=== PATIENT | female | born 1990 | race African-American/Black ===

== ENCOUNTER 2016-09-16 01:00 | Observation (INO) | payer MEDICAID ==
--- NOTE | ~2016-09-16 | CO ---
Unit #: [id number] #: [id number] Patient: ETHEL ENG [id number] [address] [place], [place] [address] [id number] Ted MR#: [id number] NAME: ETHEL ENG ROOM: 306 Age: 26 Sex: F Admission Date: 09/15/2016 : 1990 Attending Physician: Emilie Sutton M.D. Primary Care Physician: Linda Jones M.D. CONSULTATION REPORT REASON FOR CONSULTATION Pneumonia, shortness of breath. HISTORY OF PRESENT ILLNESS This is a 26-year-old female with past medical history significant for likely obstructive sleep apnea. Presents with complaints of cough, shortness of breath, and increasing sputum production. CT chest showed bilateral patchy airspace nodular infiltrates consistent with pneumonia. I am seeing the patient at bedside complaining of shortness of breath. REVIEW OF SYSTEMS Positive (1) . No edema, no cyanosis, and no (2) . Rest as per history of present illness. Rest of 12-point review of systems has been reviewed and is negative. PAST MEDICAL HISTORY None. SOCIAL HISTORY Nonsmoker. No alcohol. No drug abuse. FAMILY HISTORY None as per record. MEDICATIONS As per MAR and has been reviewed. ALLERGIES Have been reviewed. PHYSICAL EXAMINATION VITAL SIGNS: Temperature 98, pulse 67, respirations 12, and blood pressure is 130/72. NEUROLOGIC: Awake, alert, and oriented. No neuro deficit. HEENT: PERRLA. EOMI. NECK: Supple. No JVD. CHEST: Bilateral air entry. Bilateral mild rhonchi. GI: Nontender and soft. Bowel sounds positive. EXTREMITIES: No edema. SKIN: No rash. No ulcer. LYMPHATIC: No lymphadenopathy. DIAGNOSTIC STUDIES Labs and imaging have been reviewed. Unit #: [id number] #: [id number] Patient: ETHEL ENG ASSESSMENT AND PLAN Pneumonia and sinusitis. Plan is to continue oxygen and bronchodilator. GI and DVT prophylaxes. Check procalcitonin level. Patient will be closely monitored. Please see orders for detailed plan. Thank you very much for this consultation. Dictated by... Leanna Muse TD: 09/16/2016 14:10 JOB #: [id number] CONSULTATION REPORT Page 1 of 1 X Andrew Kat MD CONSULTATION REPORT
--- NOTE | ~2016-09-16 | HP ---
Unit #: [id number] #: [id number] Patient: ETHEL ENG [id number] [address] [place], [place] [address] [id number] MR#: [id number] NAME: ETHEL ENG ROOM: 306 Age: 26 Sex: F Admission Date: 09/15/2016 : 1990 Attending Physician: Emilie Sutton M.D. Primary Care Physician: Linda Jones M.D. HISTORY AND PHYSICAL CHIEF COMPLAINT Shortness of breath, wheezing, and dizziness. DISCUSSION This is a 26-year-old female who has insignificant past medical history. She has been recently sick with symptoms of cough, flu symptoms, lightheaded, and confusion. She was recently diagnosed with flu. She was given Tamiflu. She completed Tamiflu. She went today to the [facility] emergency room with chief complaining of having shortness of breath, lightheaded, dizziness, and slight confusion and on workup on the CT scan she was found to have bilateral patchy airspace nodular disease consistent with bilateral pneumonia and she eventually been admitted here. She said she had been having fever two days ago, but she denies any fever now. She has some cough with shortness of breath with dizziness. No nausea or vomiting. No chest pain. PAST MEDICAL HISTORY Unremarkable. PAST SURGICAL HISTORY C section. SOCIAL HISTORY She does not smoke and does not drink alcohol. FAMILY HISTORY Noncontributory. No family history of heart disease or diabetes or COPD in the family. MEDICATIONS Does not take any medications. ALLERGIES No known drug allergies. REVIEW OF SYSTEMS Negative, except history of present illness. PHYSICAL EXAMINATION GENERAL APPEARANCE: 26-year-old female lying in the bed comfortably currently not in any distress. She is alert, awake, and oriented x3. VITAL SIGNS: Current vitals are following: Temperature 98.3, heart rate 73, respiratory rate 17, and blood pressure 100/67. HEENT: Pupils equal, round, and reactive to light and accommodation. Unit #: [id number] #: [id number] Patient: ETHEL ENG Head is normocephalic and atraumatic. NECK: Supple. No JVD. HEART: S1 and S2. Regular rate and rhythm. ABDOMEN: Soft, nontender, and nondistended. Bowel sounds positive. EXTREMITIES: Inspection normal. No cyanosis, no clubbing, and no edema. NEUROLOGICAL: No focal neurologic deficit. DIAGNOSTIC STUDIES LABORATORY: Workup is following. White count is 6.6, hemoglobin 12, hematocrit 36, and platelets 340. Sodium 135, potassium 2.5, chloride 103, CO2 26, BUN 3, and creatinine 0.57. LFTs within normal limits. IMAGING: CT chest, PE protocol, shows no pulmonary embolism, but shows patchy nodular airspace disease. ASSESSMENT AND PLAN 1. Pneumonia, patchy nodular airspace disease bilaterally. Will start the patient on IV Rocephin and Zithromax. Will ask pulmonary, Dr. Kat, to evaluate for abnormal CT scan. 2. Bilateral acute (1) sinusitis. 3. Hypokalemia, replace. 4. Recently diagnosed with flu and treated with Tamiflu. 5. Abnormal D-dimer. Negative for PE. 6. DVT prophylaxis. Will place the patient on SCDs. Dictated by Leanna Persaud/quyen TD: 09/16/2016 11:32 JOB #: [id number] HISTORY AND PHYSICAL Page 1 of 1 X X HISTORY AND PHYSICAL
--- NOTE | ~2016-09-16 | DS ---
Unit #: [id number] #: [id number] Patient: ETHEL ENG [id number] [address] [place] [address] [address] [id number] Ted MR#: [id number] NAME: ETHEL ENG ROOM: 306 Age: 26 Sex: F Admission Date: 09/15/2016 : 1990 Discharge Date: Attending Physician: Emilie Sutton M.D. Primary Care Physician: Linda Jones M.D. DISCHARGE SUMMARY DISCHARGE DIAGNOSES 1. Bilateral patchy nodular airspace and disease with pneumonia. 2. Acute bilateral maxillary and ethmoid sinusitis. 3. Hypokalemia. 4. Recently diagnosed with influenza, treated with Tamiflu. 5. Abnormal D-dimer. CAT scan negative for a pulmonary embolism. CONSULTATION None. PROCEDURES None. LAB DATA WBC 6.2, hemoglobin 11.5, platelets 283. Sodium 141, potassium 3.7, creatinine 0.4, calcium 8.5. CAT scan of the thorax shows no PE, no dissection. Bilateral patchy nodular infiltrates present. Needs followup chest x-ray for resolution. CAT scan of the head shows bilateral maxillary and ethmoid sinusitis. ALLERGIES None. DISCHARGE MEDICATION Augmentin 875 mg p.o. b.i.d. for 10 days. HOSPITALIZATION COURSE A 26-year-old admitted because of shortness of breath and cough. Bilateral patchy nodule pneumonia with recent flu: The patient was given IV Rocephin and Zithromax. Currently, she is afebrile. WBC normal. She does not need oxygen. She is ambulating fine and eating fine. She wants to go home. The patient will be discharged on Augmentin for 10 days. The patient needs repeat chest x-ray in two weeks' time for followup and make sure the pneumonia is resolved. Follow with PCP with results. Acute maxillary and ethmoid sinusitis: Continue the antibiotics. Currently, she denies having any facial pain. No facial erythema. Hypokalemia: Replace with p.o. potassium. Currently, potassium level is normal. Discharge home. Follow with family physician in one week's time. I gave Unit #: [id number] #: [id number] Patient: ETHEL ENG prescription for chest x-ray, PA and lateral, in two weeks' time. Follow with the family physician with results. Dictated by... Leanna De Jesus/mark TD: 09/16/2016 12:05 JOB #: [id number] DISCHARGE SUMMARY Page 1 of 1 X Emilie Sutton MD X DISCHARGE SUMMARY
[2016-09-16 05:25] LABS: HEMATOCRIT 35.3 % (35.0-45.0); HEMOGLOBIN 11.5 gm/dL (12.0-16.0); MEAN CELL VOLUME 81.8 FL (83-96); MEAN CORPUSCULAR HEMOGLOBIN 26.7 PG (28-34); MEAN CORPUSCULAR HGB CONC 32.6 g/dL (30-36); MEAN PLATELET VOLUME 8.4 FL (6.5-11.5); RED BLOOD COUNT 4.31 X10e (3.90-5.30); RED CELL DISTRIBUTION WIDTH 13.4 % (11.0-15.5); WHITE BLOOD COUNT 6.2 X10e3 (4.0-10.5)
[2016-09-16 06:08] LABS: CALCIUM SERUM 8.5 mg/dL (8.4-10.2); CARBON DIOXIDE 27 mmol/L (22-31); CHLORIDE 106 mmol/L (100-111); CREATININE SERUM 0.4 mg/dL (0.6-1.4); GLOM FILT RATE Estimated 164.3 mL/min (>60); GLUCOSE FASTING 96 mg/dL (70-110); MAGNESIUM 2.3 mg/dL (1.6-3.0); POTASSIUM 3.7 mmol/L (3.5-5.1); SODIUM 141 mmol/L (135-145)
[2016-09-16 06:11] LABS: BLOOD UREA NITROGEN <5 mg/dL (9-23)
[2016-09-16] MEDS ORDERED: AUGMENTIN875 MG PO (16:31)
== END 2016-09-16 17:39 | disposition home or self-care (01) ==
LOC: C3A PCU 01:00
PROVIDERS: Internal Medicine
DX: J11.00 Influenza due to unidentified influenza virus with unspecified type of pneumonia (principal); J18.9 Pneumonia, unspecified organism; J01.20 Acute ethmoidal sinusitis, unspecified; J01.00 Acute maxillary sinusitis, unspecified; E87.6 Hypokalemia
CPT/HCPCS: 80048; 83735; 85027; 94760; 96374; 96375; G0378; J0456; J0696